=== PATIENT | female | born 1955 | race Caucasian/White ===

== ENCOUNTER 2017-04-14 08:08 | Inpatient (IN) | payer BC ==
[2017-04-08 17:11] LABS: WBC (NOT ORDERED) (RFLEX) 0 (0-5)
[2017-04-08 17:21] LABS: BASOPHILS 0.7 %; BASOPHILS ABSOLUTE 0.05 10/3/uL (0.0-0.16); EOSINOPHILS 5.3 %; EOSINOPHILS ABSOLUTE 0.38 10/3/uL (0.0-0.53); HEMATOCRIT 37.4 % (36.0-48.0); HEMOGLOBIN 12.4 g/dL (12.0-16.0); IMMATURE GRANULOCYTES 0.4 %; IMMATURE GRANULOCYTES ABSOLUTE 0.03 10/3/uL (0.0-0.11); LYMPHOCYTES 36.5 %; LYMPHOCYTES ABSOLUTE 2.61 10/3/uL (0.67-4.30); MEAN CORPUS HGB CONC 33.2 g/dL (32.0-36.0); MEAN CORPUSCULAR VOLUME 90.6 fL (80-100); MONOCYTES ABSOLUTE 0.57 10/3/uL (0.21-1.20); NEUTROPHILS 49.1 %; NEUTROPHILS ABSOLUTE 3.52 10/3/uL (2.02-8.40); PLATELET COUNT 245 10/3/uL (150-400); RBC DISTRIBUTION WIDTH 12.7 % (12.0-16.0); RED CELL COUNT 4.13 10/6/uL (4.0-5.6); WHITE BLOOD CELLS 7.2 10/3/uL (4.5-10.5)
[2017-04-08 17:23] LABS: MANUAL DIFF NO %
[2017-04-08 17:27] LABS: PROTIME (NOT ORD) 13.4 SEC (12.0-14.5)
[2017-04-08 17:39] LABS: % IRON SAT 27 % (20-50); A/G RATIO 1.2 (0.7-1.9); ALBUMIN 4.1 G/DL (3.5-5.0); ALKALINE PHOSPHATASE 103 U/L (45-117); BUN (BLOOD UREA NITROGEN) 11 MG/DL (6-23); CALCIUM, SERUM 9.7 MG/DL (8.5-10.4); CHLORIDE, SERUM 101 MMOL/L (96-112); CO2 (CARBON DIOXIDE) 29 MMOL/L (24-34); CREATININE 0.85 MG/DL (0.55-1.02); GFR AFRICAN AMERICAN 86 ML/MIN (>=60); GFR NON AFRICAN AMERICAN 74 ML/MIN (>=60); GLOBULIN 3.5 G/DL (2.5-4.1); GLUCOSE, SERUM 92 MG/DL (60-99); IRON BINDING CAPACITY 288 MCG/DL (225-410); IRON, SERUM 77 MCG/DL (35-150); POTASSIUM, SERUM 3.7 MMOL/L (3.5-5.3); SGOT(AST) 21 U/L (5-40); SGPT(ALT) 24 U/L (5-65); SODIUM, SERUM 137 MMOL/L (135-148); TOTAL BILIRUBIN 0.4 MG/DL (0-1.2); TOTAL PROTEIN 7.6 G/DL (6.0-8.5)
[2017-04-08 18:56] LABS: ASCORBIC ACID (UR NOT ORDER) NEG (NEG); BILIRUBIN, URINE NEGATIVE (NEG); KETONE, URINE NEGATIVE (NEG); LEUKOCYTE ESTERASE(NOT OR NEG (NEG)
--- NOTE | ~2017-04-14 | HP ---
History And Physical [place] [id number] [facility] [place]. [address] NAME: HILLARY VELAZQUEZ : 55 STATUS : DIS IN PAT#: [id number] AGE: 61 ADM/REG DATE : 04/14/17 MR#: [id number] REPORT SERV DATE: 06/16/17 DICTATED BY: LÁZARO VASQUEZ DATE: 06/15/17 REPORT STATUS : Draft TRANSCRIBED BY: MODL DATE: 06/15/17 DATE OF ADMISSION: 04/14/2017 Dictating for medical record only CHIEF COMPLAINT: Occasional gastroesophageal reflux disease. HISTORY OF PRESENT ILLNESS: Hillary Velazquez is a pleasant 61-year-old female, who was referred to Dr. Vasquez by Dr. Saw Moreno for a diagnosis of mitral valve insufficiency. The patient was seen in the office for possible mitral valve repair or replacement. 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 She has not noticed any significant shortness of breath with exertion. She denies anginal discomfort or chest pain, orthopnea, lower extremity edema. She denied personal history of angina or health problems other than her heart valve. She does have palpitations. She denies history of stroke or TIA-like symptoms. She has no history of postural dizziness and does complain of occasional GERD- like symptoms that she feels may be related to her diet. She did have a coronary arteriogram that demonstrated no significant coronary artery disease and a left ejection fraction of 50%. She was noted to have some left atrial dilation. PAST MEDICAL HISTORY: Significant for hyperlipidemia, hypertension, and mitral valve regurgitation. FAMILY HISTORY: Significant for diabetes mellitus, hypertension, hyperlipidemia. Her father did have myocardial infarction and is now . Her mother does have a history of hypertension and she has a sister with hyperlipidemia. SOCIAL HISTORY: She was never a smoker and denies history of alcohol or illicit drug use. She does consume caffeine on occasion. ALLERGIES: SHE DOES REPORT AN ALLERGY TO PENICILLIN. MEDICATIONS: Her medication list includes, 1. Acetaminophen 500 mg every 6 hours as needed. 2. Aspirin 81 mg once daily. 3. Ibuprofen 100 mg as needed. 4. Loratadine 10 mg once daily. 5. Lorazepam 0.5 mg twice daily. 6. Losartan HCTZ 50 mg-12.5 mg one tablet daily. 7. Magnesium 400 mg daily. 8. Pravastatin 20 mg at bedtime. 9. Vitamin B12 two tablets once daily. 10.Zantac 150 mg as needed. REVIEW OF SYSTEMS: CONSTITUTIONAL: Negative for weight gain, weight loss, or fever. EYES: Her eyes are negative for visual changes. History And Physical [address] [place]. [address] NAME: HILLARY VELAZQUEZ : 55 STATUS : DIS IN PAT#: [id number] AGE: 61 ADM/REG DATE : 04/14/17 MR#: [id number] REPORT SERV DATE: 06/16/17 DICTATED BY: LÁZARO VASQUEZ DATE: 06/15/17 REPORT STATUS : Draft TRANSCRIBED BY: AMALIA DATE: 06/15/17 ENT: Negative for hearing loss. RESPIRATORY: Negative for hemoptysis or dyspnea. She does state that she has snoring. CARDIAC: Negative for chest pain, diaphoresis, orthopnea, syncope, or paroxysmal nocturnal dyspnea. She does complain of palpitation. VASCULAR: Negative for claudication. GI: Negative for nausea, bleeding, and positive for reflux. : Negative for hematuria and positive for nocturia. ENDOCRINE: Negative for goiter or tremors. NEURO: Negative for dizziness, memory loss, or seizures. PSYCHIATRIC: Negative for depression or hallucinations. DERMATOLOGICAL: Negative for rash or skin sores. MUSCULOSKELETAL: Negative for joint pain and positive for myalgias. HEMATOLOGY: Negative for thrombocytopenia and positive for acute anemia. PHYSICAL EXAMINATION: VITAL SIGNS: Pulse rate of 61, blood pressure of 141/73. She is 64 inches, weighs 186 pounds, and BMI is 31.9. CONSTITUTIONAL: Negative for acute distress. She is well nourished and is well developed. HEENT: Her eyes, she has clear sclerae and conjunctivae bilaterally and pupils are equal, round, and reactive to light. Her oral mucosa is moist with no evidence of cyanosis or pallor. NECK: Her thyroid demonstrate no masses. She has normal range of motion of her neck and no evidence of jugular vein distention. RESPIRATORY: Her respirations are nonlabored and her breath sounds are clear throughout. CARDIAC: She has regular rate and rhythm and has normal palpation of the PMI. She has S1 and S2 heart sounds. She does have a positive 3/4 systolic ejection murmur heard at the left sternal border with radiation to the axilla. VASCULAR: She has normal carotid pulses bilaterally and normal pedal pulses bilaterally. ABDOMEN: There is no evidence of tenderness. It is soft upon palpation with no evidence of hepatic or splenomegaly. She has active bowel sounds. SKIN: Warm and dry without present of venous stasis ulcers or rashes. MUSCULOSKELETAL: Her gait is normal and she is able to exercise. EXTREMITIES: Demonstrate no evidence of upper or lower extremity edema. There is no clubbing or cyanosis. NEUROLOGIC: She is awake, alert, and oriented, and presents with appropriate mood and affect. IMPRESSION: 1. Non-rheumatic mitral valve insufficiency. 2. Hypertension. 3. Hyperlipidemia. PLAN: Mrs. Velazquez is a pleasant 61-year-old white female, who has asymptomatic mitral valve insufficiency and left atrial dilation. It looks like she has possible flail of P1, which is possible papillary muscle tear or possibly a forme mitral valve with blowing leaflets. I agree with her need for mitral valve replacement. There is no urgency for this procedure, however. 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 [address] NAME: HILLARY VELAZQUEZ : 55 STATUS : DIS IN PAT#: [id number] AGE: 61 ADM/REG DATE : 04/14/17 MR#: [id number] REPORT SERV DATE: 06/16/17 DICTATED BY: LÁZARO VASQUEZ DATE: 06/15/17 REPORT STATUS : Draft TRANSCRIBED BY: AMALIA DATE: 06/15/17 to proceeding with surgery. It was discussed with her risk for the procedure with the patient and her family in the office today and they understand the risks which include bleeding, infection, pneumonia, blood transfusion, liver or kidney damage, arrhythmias, need for pacemaker, heart attack, stroke, mediastinitis, DVT with pulmonary emboli, and among others. The patient states that she wishes to proceed with surgery and has been scheduled for a mitral valve replacement and transesophageal echocardiogram scheduled for 04/14/2017 at [facility]. DICTATED BY: RHONA Davidson/AMALIA Lázaro Vasquez M.D. / [id number] CC: Vannessa Kearney M.D.
--- NOTE | ~2017-04-14 | OP ---
Record Of Operation [facility] [address] [facility] [place]. [address] NAME: HILLARY VELAZQUEZ : 55 STATUS : ADM IN PAT#: [id number] AGE: 61 ADM/REG DATE : 04/14/17 MR#: [id number] REPORT SERV DATE: 04/15/17 DICTATED BY: LÁZARO VASQUEZ DATE: 04/14/17 REPORT STATUS : Draft TRANSCRIBED BY: MODL DATE: 04/14/17 DATE OF PROCEDURE: 04/14/2017 PREOPERATIVE DIAGNOSES: 1. Mitral valve insufficiency. 2. Hypertension. 3. Hyperlipidemia. 4. Obesity. POSTOPERATIVE DIAGNOSES: 1. Mitral valve insufficiency. 2. Hypertension. 3. Hyperlipidemia. 4. Obesity. PROCEDURE PERFORMED: 1. Mitral valvuloplasty with using [facility] NeoChords x2 and closure of cleft. 2. Mitral valve annuloplasty using a 30 mm annuloplasty ring system (Physio II). 3. Transesophageal echocardiography. SURGEON: Lázaro Vasquez M.D. BUSINESS OFFICE DIRECTOR: Klaus Lindsay and Evelyn Melissa. ANESTHESIA: General with Dr. Garcia. LIVESTOCK HANDLER: Saw Moreno M.D. PRIMARY CARE: Valdez Bourgeois. 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 Saw Moreno. She is not having significant symptoms of chest discomfort. She has no history of arrhythmias, and she denied any significant dyspnea with exertion. Her ventricular function remained preserved on echocardiography, and she was noted to have dilatation of the left atrium. Because of worsening mitral valve insufficiency on echo with Dr. Moreno, it was recommend that patient undergo operative repair of the valve. She had a cardiac catheterization, did not demonstrate any significant coronary artery disease. I saw the patient in my office and discussed possible mitral valve repair with she and her . After discussing the operation, indication, risks, they wished to proceed. Predicted operative mortality less than 1% and morbidity mortality less than 10% were shared with the family. Use of approach either through a thoracotomy or sternotomy was discussed with the patient. She preferred thoracotomy, however, accepted sternotomy if needed. FINDINGS: 1. Cross-clamp 96 minutes. Total pump time 110 minutes. Jail was used as Record Of Operation [facility] [address] [place]. [address] NAME: HILLARY VELAZQUEZ : 55 STATUS : ADM IN [facility]#: [id number] AGE: 61 ADM/REG DATE : 04/14/17 MR#: [id number] REPORT SERV DATE: 04/15/17 DICTATED BY: LÁZARO VASQUEZ DATE: 04/14/17 REPORT STATUS : Draft TRANSCRIBED BY: AMALIA DATE: 04/14/17 crystalloid cardioplegia. 2. 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 There was no flail but the chords of P2 were very long and generous. In addition, we found a large cleft between P1 and P2. The repair included a [facility] Rm chords x2 that was secured to the papillary muscle and into the edge of the sleeve generous P2 leaflet. In addition, we closed the cleft between P1 and P2 with a horizontal mattress suture of Prolene. 3. We used a 30 mm Physio II annuloplasty ring system. Twenty Cor-Knots were used to secure this ring in place. 4. We did ligate and amputate the left atrial appendage using 60 mm purple staple load. 5. NIKOS at the time of operation demonstrated good ventricular function with no residual mitral insufficiency. 6. Once the patient was asleep, I evaluated her, and in trying to position her, I felt that a repair would be best approached through a sternotomy. This was called and discussed with the family at that time who agreed. PATHOLOGIC SPECIMENS: Include left atrial appendage. DESCRIPTION OF PROCEDURE: The patient was brought to the operating suite where general anesthesia was induced and the airway secured with an endotracheal tube. Lines secured by Anesthesia and Ponce catheter was placed. NIKOS probe was placed by Anesthesia and examination carried out as discussed above. There was significant eccentric mitral insufficiency seen. There was very mild tricuspid insufficiency. No significant aortic insufficiency. The patient's chest, abdomen, groin, and legs prepped with Hibiclens and ChloraPrep and draped with Ioban sterile sheets. Then, a midline sternal incision made and the sternum opened with a saw. Lines were passed on the field for cardiopulmonary bypass and cleared of air. Cannulation pursestring sutures were placed in usual fashion. Cannulation was then carried out. A dual stage venous cannula was placed in the right atrial appendage. When all was in readiness, the patient placed on cardiopulmonary bypass. Then, the interatrial groove of [place] was dissected. The aorta was crossclamped and the only dose of cold crystalloid cardioplegia was administered using Custodiol solution for a total of 2 L. Following the first dose of cardioplegia, small left atriotomy was made and the left ventricle decompressed. The heart was gently rotated towards the surgeon. The left atrial appendage was grasped. It was ligated and amputated at its base using thoracoscopic stapler and a 60 mm purple staple load. The left atriotomy was expanded, and the Hannah retractor apparatus was assembled and positioned on good visualization of the mitral valve. The mitral valve was inspected and iced saline injection through the orifice of the mitral valve demonstrated a very redundant P2 leaflet with prolapse. I felt this possibly repaired valve and this valve edge was marked. Then, CV-4 [facility]av sutures were brought up to the field. It was first secured to the anterolateral papillary muscle with felt pledgets. The [facility]av suture was then passed Record Of Operation [facility] [address] [facility] [place]. [address] NAME: HILLARY VELAZQUEZ : 55 STATUS : ADM IN [facility]#: [id number] AGE: 61 ADM/REG DATE : 04/14/17 MR#: [id number] REPORT SERV DATE: 04/15/17 DICTATED BY: LÁZARO VASQUEZ DATE: 04/14/17 REPORT STATUS : Draft TRANSCRIBED BY: MODL DATE: 04/14/17 through the redundant portion of the P2 cusp with both sutures. A small clip was lightly placed on the [facility] Rm Chord at the appropriate length and an iced saline injection through the orifice of the mitral valve at this point demonstrated good seal of this prolapsed cord. However, large cleft between P1 and P2 became evident. We then closed this cleft with a horizontal mattress suture of 5-0 Prolene x1. Iced saline injection through the orifice of the mitral valve at this point demonstrated no insufficiency. Then, the [facility] Gaurav suture was passed back through the leaflet and tied to the leaflet with multiple knots. The small clip was removed from the [facility] suture. Iced saline injection into the left ventricle through the mitral repair demonstrated no insufficiency after repair. The valve was then sized and a 30 mm Physio II annuloplasty ring system was selected. Interrupted horizontal mattress sutures of 2-0 Tycron were placed circumferentially about the mitral valve annulus. The sutures were then passed through the sewing cuff of the annuloplasty ring. This was lowered into position. Each of the sutures individually secured and divided using a Cor-Knot device. A total of 20 Cor-Knots were utilized. Iced saline injection through the orifice of the mitral valve after repair demonstrated no insufficiency. Warming was begun. An LV vent was placed through right superior pulmonary vein and directed into the left ventricle through the mitral valve. The left atriotomy was then closed in a two-layer fashion running pledgeted suture of 4-0 Prolene. The patient was placed in Trendelenburg, and ventricular and atrial pacing wires were placed. Following de-airing of the ascending aorta and left ventricle, the aortic cross- clamp was removed. The heart was allowed to rest on cardiopulmonary bypass for several minutes. Ventilation was begun. When heart demonstrated good contractility, pacing was begun in an AV sequential fashion and later converted to atrial pacing only at a rate of 80. Heart was allowed to fill and eject. When deairing was completed, the LV vent was removed and these pursestring sutures tied. The ascending aortic vent was removed and these pursestring sutures tied and reinforced. The patient was weaned from cardiopulmonary bypass with minimal inotropic support. The venous cannulas were removed and these pursestring sutures tied. NIKOS examination demonstrated good functioning ventricle with no residual mitral insufficiency. There was no significant tricuspid or aortic valve insufficiency. Protamine was then administered by Anesthesia, and following a period of hemodynamic stability, the aortic cannula was removed and these pursestring sutures tied and reinforced. The patient continued to do well and chest irrigated copiously with saline. Meticulous hemostasis was obtained. Hemasorb was placed along the cut edge of the sternum. Once hemostasis was assured, the pericardium was draped over the anterior surface of the heart and tacked into position. Then, the heart and pericardial space were again inspected and irrigated and there was no bleeding evident. Chest tubes were placed and sternum reapproximated with 8 sternal wires. The clavipectoral fascia and linea alba closed with #1 Stratafix. The subcutaneous tissue closed with Stratafix and skin closed in subcuticular fashion. Record Of Operation [place] [id number] [place]. [address] NAME: HILLARY VELAZQUEZ : 55 STATUS : ADM IN PAT#: [id number] AGE: 61 ADM/REG DATE : 04/14/17 MR#: [id number] REPORT SERV DATE: 04/15/17 DICTATED BY: LÁZARO VASQUEZ DATE: 04/14/17 REPORT STATUS : Draft TRANSCRIBED BY: AMALIA DATE: 04/14/17 The patient tolerated the procedure well in no complications. Sponge and needle counts were correct. DISPOSITION: The patient left intubated, sedated, and transported to the intensive care unit in stable condition. LIBBY/AMALIA Lázaro Vasquez M.D. / [id number] CC: Vannessa Kearney M.D. Dennis Thompson, M.D.
[~2017-04-14 08:08] MED LIST: ACET500CAP PO; ADVIL PO; ASAB PO; ATV.5 PO; CLARIT10 PO; CYANO1000T PO; HYZAAR 50/12.51 TAB PO; MAGOX4 PO; PRAVAC PO; ZANTAC150 MG PO
[2017-04-14 18:51] LABS: PLATELET COUNT 176 10/3/uL (150-400)
[2017-04-14 18:52] LABS: HEMATOCRIT 32.5 % (36.0-48.0)
[2017-04-14 18:59] LABS: INTERNATIONAL NORMAL RATI 1.7 UNITS (-); PARTIAL THROMBO TIME 33.7 SEC (22.5-37.2)
[2017-04-14 19:00] LABS: PROTIME (NOT ORD) 19.4 SEC (12.0-14.5)
[2017-04-14 19:11] LABS: BE (BASE EXCESS) -4.8 MEQ/L (0 +/- 2.5); CARBOXYHEMOGLOBIN 0.3 % (0-3); HCO3 (ACTUAL BICARBONATE) 19.1 MEQ/L (23-27); HEMOBLOGIN CONTENT 11.7 G/DL (12-16); INSTRUMENT SERIAL # 11843; METHEMOGLOBIN 0.7 % (0-3); MODE SIMV; O2 CONTENT 16.7 VOL% (18-24); OPERATOR ID 18642; PCO2 (CO2 TENSION) 32 MMHG (35-45); PO2 (O2 TENSION) 273 MMHG (79-93); PRESSURE SUPPORT 0 cm.H2O; SAMPLE Arterial; TIDAL VOLUME 700 ML
[2017-04-14 21:35] LABS: BUN (BLOOD UREA NITROGEN) 12 MG/DL (6-23); CHLORIDE, SERUM 112 MMOL/L (96-112); CREATININE 0.98 MG/DL (0.55-1.02); GFR AFRICAN AMERICAN 72 ML/MIN (>=60); GFR NON AFRICAN AMERICAN 62 ML/MIN (>=60); GLUCOSE, SERUM 99 MG/DL (60-99); SODIUM, SERUM 132 MMOL/L (135-148)
[2017-04-14 21:36] LABS: CALCIUM, SERUM 7.8 MG/DL (8.5-10.4); CO2 (CARBON DIOXIDE) 21 MMOL/L (24-34)
[2017-04-15 00:49] LABS: HEMATOCRIT 32.9 % (36.0-48.0); HEMOGLOBIN 11.1 g/dL (12.0-16.0)
[2017-04-15 01:00] LABS: POTASSIUM, SERUM 3.7 MMOL/L (3.5-5.3)
[2017-04-15 01:08] LABS: BE (BASE EXCESS) -6.9 MEQ/L (0 +/- 2.5); CARBOXYHEMOGLOBIN 0.1 % (0-3); HEMOBLOGIN CONTENT 11.7 G/DL (12-16); INSTRUMENT SERIAL # 11843; METHEMOGLOBIN 0.8 % (0-3); O2 CONTENT 15.9 VOL% (18-24); PCO2 (CO2 TENSION) 46 MMHG (35-45); PO2 (O2 TENSION) 110 MMHG (79-93); pH 7.26 (7.37-7.43)
[2017-04-15 01:09] LABS: DEVICE NC; OPERATOR ID 13744; SAMPLE Arterial
[2017-04-15 04:47] LABS: BASOPHILS 0.1 %; BASOPHILS ABSOLUTE 0.01 10/3/uL (0.0-0.16); EOSINOPHILS 0 %; HEMATOCRIT 32.2 % (36.0-48.0); HEMOGLOBIN 10.8 g/dL (12.0-16.0); IMMATURE GRANULOCYTES 0.6 %; LYMPHOCYTES 3.5 %; LYMPHOCYTES ABSOLUTE 0.58 10/3/uL (0.67-4.30); MEAN CORPUS HGB CONC 33.5 g/dL (32.0-36.0); MEAN CORPUSCULAR HEMOGLOB 30.7 pg (26.0-34.0); MEAN CORPUSCULAR VOLUME 91.5 fL (80-100); MEAN PLATELET VOLUME 10.7 fL (9.2-13.0); MONOCYTES 4.9 %; MONOCYTES ABSOLUTE 0.81 10/3/uL (0.21-1.20); NEUTROPHILS 90.9 %; NEUTROPHILS ABSOLUTE 15.14 10/3/uL (2.02-8.40); PLATELET COUNT 151 10/3/uL (150-400); RBC DISTRIBUTION WIDTH 12.9 % (12.0-16.0); RED CELL COUNT 3.52 10/6/uL (4.0-5.6)
[2017-04-15 04:48] LABS: MANUAL DIFF NO %; WHITE BLOOD CELLS 16.6 10/3/uL (4.5-10.5)
[2017-04-15 05:02] LABS: BUN (BLOOD UREA NITROGEN) 14 MG/DL (6-23); CALCIUM, SERUM 7.2 MG/DL (8.5-10.4); CHLORIDE, SERUM 115 MMOL/L (96-112); CO2 (CARBON DIOXIDE) 22 MMOL/L (24-34); CREATININE 0.87 MG/DL (0.55-1.02); GFR AFRICAN AMERICAN 83 ML/MIN (>=60); GFR NON AFRICAN AMERICAN 72 ML/MIN (>=60); GLUCOSE, SERUM 99 MG/DL (60-99); POTASSIUM, SERUM 4.3 MMOL/L (3.5-5.3)
[2017-04-15 05:06] LABS: SODIUM, SERUM 142 MMOL/L (135-148)
[2017-04-15 15:34] LABS: BASOPHILS 0 %; EOSINOPHILS 0 %; HEMOGLOBIN 9.3 g/dL (12.0-16.0); IMMATURE GRANULOCYTES 0.4 %; IMMATURE GRANULOCYTES ABSOLUTE 0.09 10/3/uL (0.0-0.11); LYMPHOCYTES 8.1 %; LYMPHOCYTES ABSOLUTE 1.68 10/3/uL (0.67-4.30); MEAN CORPUS HGB CONC 32.5 g/dL (32.0-36.0); MEAN CORPUSCULAR HEMOGLOB 29.9 pg (26.0-34.0); MEAN PLATELET VOLUME 10.4 fL (9.2-13.0); MONOCYTES 7.6 %; MONOCYTES ABSOLUTE 1.59 10/3/uL (0.21-1.20); NEUTROPHILS 83.9 %; NEUTROPHILS ABSOLUTE 17.45 10/3/uL (2.02-8.40); PLATELET COUNT 147 10/3/uL (150-400); RBC DISTRIBUTION WIDTH 13.6 % (12.0-16.0); RED CELL COUNT 3.11 10/6/uL (4.0-5.6); WHITE BLOOD CELLS 20.8 10/3/uL (4.5-10.5)
[2017-04-15 15:39] LABS: HEMATOCRIT 28.6 % (36.0-48.0); MANUAL DIFF NO %
[2017-04-15 15:46] LABS: CHLORIDE, SERUM 111 MMOL/L (96-112); CO2 (CARBON DIOXIDE) 22 MMOL/L (24-34); CREATININE 0.98 MG/DL (0.55-1.02); GFR AFRICAN AMERICAN 72 ML/MIN (>=60); GFR NON AFRICAN AMERICAN 62 ML/MIN (>=60); GLUCOSE, SERUM 105 MG/DL (60-99); POTASSIUM, SERUM 4.7 MMOL/L (3.5-5.3); SODIUM, SERUM 141 MMOL/L (135-148)
[2017-04-15 15:47] LABS: BUN (BLOOD UREA NITROGEN) 18 MG/DL (6-23); CALCIUM, SERUM 8.2 MG/DL (8.5-10.4)
[2017-04-16 03:53] LABS: BASOPHILS 0 %; EOSINOPHILS 0 %; HEMOGLOBIN 8.4 g/dL (12.0-16.0); IMMATURE GRANULOCYTES 0.5 %; IMMATURE GRANULOCYTES ABSOLUTE 0.09 10/3/uL (0.0-0.11); LYMPHOCYTES 10.2 %; LYMPHOCYTES ABSOLUTE 1.82 10/3/uL (0.67-4.30); MEAN CORPUS HGB CONC 33.3 g/dL (32.0-36.0); MEAN CORPUSCULAR HEMOGLOB 30.5 pg (26.0-34.0); MEAN CORPUSCULAR VOLUME 91.6 fL (80-100); MEAN PLATELET VOLUME 10.6 fL (9.2-13.0); MONOCYTES 7.8 %; NEUTROPHILS 81.5 %; NEUTROPHILS ABSOLUTE 14.62 10/3/uL (2.02-8.40); PLATELET COUNT 118 10/3/uL (150-400); RBC DISTRIBUTION WIDTH 13.6 % (12.0-16.0); RED CELL COUNT 2.75 10/6/uL (4.0-5.6); WHITE BLOOD CELLS 17.9 10/3/uL (4.5-10.5)
[2017-04-16 04:02] LABS: HEMATOCRIT 25.2 % (36.0-48.0); MANUAL DIFF NO %
[2017-04-16 04:14] LABS: CALCIUM, SERUM 8.8 MG/DL (8.5-10.4); CHLORIDE, SERUM 109 MMOL/L (96-112); CO2 (CARBON DIOXIDE) 23 MMOL/L (24-34); CREATININE 0.92 MG/DL (0.55-1.02); GFR AFRICAN AMERICAN 78 ML/MIN (>=60); GFR NON AFRICAN AMERICAN 67 ML/MIN (>=60); GLUCOSE, SERUM 125 MG/DL (60-99); POTASSIUM, SERUM 4.6 MMOL/L (3.5-5.3); SODIUM, SERUM 139 MMOL/L (135-148)
[2017-04-16 04:18] LABS: BUN (BLOOD UREA NITROGEN) 26 MG/DL (6-23)
[2017-04-17 04:34] LABS: BASOPHILS 0.1 %; BASOPHILS ABSOLUTE 0.01 10/3/uL (0.0-0.16); EOSINOPHILS 0.1 %; EOSINOPHILS ABSOLUTE 0.01 10/3/uL (0.0-0.53); HEMATOCRIT 23.8 % (36.0-48.0); IMMATURE GRANULOCYTES 0.3 %; IMMATURE GRANULOCYTES ABSOLUTE 0.05 10/3/uL (0.0-0.11); LYMPHOCYTES ABSOLUTE 1.91 10/3/uL (0.67-4.30); MEAN CORPUS HGB CONC 33.6 g/dL (32.0-36.0); MEAN CORPUSCULAR HEMOGLOB 30.3 pg (26.0-34.0); MEAN CORPUSCULAR VOLUME 90.2 fL (80-100); MEAN PLATELET VOLUME 10.6 fL (9.2-13.0); MONOCYTES 8.5 %; MONOCYTES ABSOLUTE 1.36 10/3/uL (0.21-1.20); NEUTROPHILS ABSOLUTE 12.59 10/3/uL (2.02-8.40); PLATELET COUNT 104 10/3/uL (150-400); RBC DISTRIBUTION WIDTH 13.4 % (12.0-16.0); RED CELL COUNT 2.64 10/6/uL (4.0-5.6); WHITE BLOOD CELLS 15.9 10/3/uL (4.5-10.5)
[2017-04-17 04:43] LABS: MANUAL DIFF NO %
[2017-04-17 04:44] LABS: BUN (BLOOD UREA NITROGEN) 24 MG/DL (6-23); CALCIUM, SERUM 8.1 MG/DL (8.5-10.4); CHLORIDE, SERUM 103 MMOL/L (96-112); CO2 (CARBON DIOXIDE) 26 MMOL/L (24-34); CREATININE 0.91 MG/DL (0.55-1.02); GFR AFRICAN AMERICAN 79 ML/MIN (>=60); GFR NON AFRICAN AMERICAN 68 ML/MIN (>=60); GLUCOSE, SERUM 146 MG/DL (60-99); POTASSIUM, SERUM 4.3 MMOL/L (3.5-5.3); SODIUM, SERUM 134 MMOL/L (135-148)
[2017-04-17 20:21] LABS: INTERNATIONAL NORMAL RATI 1.2 UNITS (-)
[2017-04-17 20:25] LABS: PROTIME (NOT ORD) 15.2 SEC (12.0-14.5)
[2017-04-18 04:37] LABS: BASOPHILS 0.3 %; BASOPHILS ABSOLUTE 0.03 10/3/uL (0.0-0.16); EOSINOPHILS 1.4 %; EOSINOPHILS ABSOLUTE 0.16 10/3/uL (0.0-0.53); HEMATOCRIT 23.4 % (36.0-48.0); HEMOGLOBIN 7.9 g/dL (12.0-16.0); IMMATURE GRANULOCYTES 0.3 %; IMMATURE GRANULOCYTES ABSOLUTE 0.04 10/3/uL (0.0-0.11); LYMPHOCYTES 20.9 %; LYMPHOCYTES ABSOLUTE 2.44 10/3/uL (0.67-4.30); MEAN CORPUS HGB CONC 33.8 g/dL (32.0-36.0); MEAN CORPUSCULAR HEMOGLOB 30.6 pg (26.0-34.0); MEAN CORPUSCULAR VOLUME 90.7 fL (80-100); MEAN PLATELET VOLUME 10.2 fL (9.2-13.0); MONOCYTES 10.1 %; MONOCYTES ABSOLUTE 1.18 10/3/uL (0.21-1.20); NEUTROPHILS ABSOLUTE 7.81 10/3/uL (2.02-8.40); PLATELET COUNT 104 10/3/uL (150-400); RBC DISTRIBUTION WIDTH 13.2 % (12.0-16.0); RED CELL COUNT 2.58 10/6/uL (4.0-5.6); WHITE BLOOD CELLS 11.7 10/3/uL (4.5-10.5)
[2017-04-18 04:38] LABS: MANUAL DIFF NO %
[2017-04-18 04:41] LABS: INTERNATIONAL NORMAL RATI 1.3 UNITS (-); PROTIME (NOT ORD) 16.1 SEC (12.0-14.5)
[2017-04-18 04:45] LABS: CALCIUM, SERUM 8.1 MG/DL (8.5-10.4); CHLORIDE, SERUM 107 MMOL/L (96-112); CO2 (CARBON DIOXIDE) 27 MMOL/L (24-34); CREATININE 0.73 MG/DL (0.55-1.02); GFR AFRICAN AMERICAN 103 ML/MIN (>=60); GFR NON AFRICAN AMERICAN 89 ML/MIN (>=60); POTASSIUM, SERUM 4.1 MMOL/L (3.5-5.3); SODIUM, SERUM 140 MMOL/L (135-148)
[2017-04-18 04:46] LABS: BUN (BLOOD UREA NITROGEN) 13 MG/DL (6-23); GLUCOSE, SERUM 99 MG/DL (60-99)
[2017-04-19 06:04] LABS: BASOPHILS 0.3 %; BASOPHILS ABSOLUTE 0.03 10/3/uL (0.0-0.16); EOSINOPHILS 4.1 %; HEMATOCRIT 23.8 % (36.0-48.0); IMMATURE GRANULOCYTES 0.3 %; IMMATURE GRANULOCYTES ABSOLUTE 0.03 10/3/uL (0.0-0.11); LYMPHOCYTES 20.2 %; LYMPHOCYTES ABSOLUTE 1.95 10/3/uL (0.67-4.30); MEAN CORPUS HGB CONC 33.6 g/dL (32.0-36.0); MEAN CORPUSCULAR HEMOGLOB 30.1 pg (26.0-34.0); MEAN CORPUSCULAR VOLUME 89.5 fL (80-100); MEAN PLATELET VOLUME 9.8 fL (9.2-13.0); MONOCYTES 11.8 %; MONOCYTES ABSOLUTE 1.14 10/3/uL (0.21-1.20); NEUTROPHILS 63.3 %; NEUTROPHILS ABSOLUTE 6.09 10/3/uL (2.02-8.40); RED CELL COUNT 2.66 10/6/uL (4.0-5.6); WHITE BLOOD CELLS 9.6 10/3/uL (4.5-10.5)
[2017-04-19 06:08] LABS: MANUAL DIFF NO %; PLATELET COUNT 153 10/3/uL (150-400)
[2017-04-19 06:18] LABS: CHLORIDE, SERUM 104 MMOL/L (96-112); CO2 (CARBON DIOXIDE) 30 MMOL/L (24-34); CREATININE 0.72 MG/DL (0.55-1.02); GFR AFRICAN AMERICAN 105 ML/MIN (>=60); GFR NON AFRICAN AMERICAN 90 ML/MIN (>=60); GLUCOSE, SERUM 108 MG/DL (60-99); INTERNATIONAL NORMAL RATI 2.4 UNITS (-); POTASSIUM, SERUM 4.1 MMOL/L (3.5-5.3); PROTIME (NOT ORD) 26.1 SEC (12.0-14.5); SODIUM, SERUM 137 MMOL/L (135-148)
[2017-04-19 06:22] LABS: BUN (BLOOD UREA NITROGEN) 9 MG/DL (6-23)
[2017-04-19] MEDS ORDERED: CORDARONE PO (16:11)
[2017-04-19] MEDS ORDERED: C25 PO (16:11)
[2017-04-19] MEDS ORDERED: KLOR-CON M2020 MEQ PO (16:12)
[2017-04-19] MEDS ORDERED: L20 PO (16:12)
[2017-04-19] MEDS ORDERED: NORCO1 TA1 PO (16:13)
== END 2017-04-19 17:29 | disposition home or self-care (01) | DRG 220 ==
LOC: SDC/OF 08:08 → CVICU 17:28 → 5NO 04-16 11:23
PROVIDERS: Anesthesiology; Thoracic Surgery (Cardiothoracic Vascular Surgery)
PROC: 02L70ZK Occlusion of Left Atrial Appendage, Open Approach (ICD-10-PCS; 2017-04-14)
PROC: 5A1221Z Performance of Cardiac Output, Continuous (ICD-10-PCS; 2017-04-14)
PROC: 02UG0JZ Supplement Mitral Valve with Synthetic Substitute, Open Approach (ICD-10-PCS; principal; 2017-04-14 13:00)
PROC: B246ZZ4 Ultrasonography of Right and Left Heart, Transesophageal (ICD-10-PCS; 2017-04-14 13:00)
DX: I34.0 Nonrheumatic mitral (valve) insufficiency (principal); I97.89 Other postprocedural complications and disorders of the circulatory system, not elsewhere classified; I10 Essential (primary) hypertension; E78.5 Hyperlipidemia, unspecified; E66.9 Obesity, unspecified; I48.91 Unspecified atrial fibrillation; D64.9 Anemia, unspecified; Z68.31 Body mass index [BMI] 31.0-31.9, adult
CPT/HCPCS: 31720; 36415; 71010; 71020; 80048; 80053; 81001; 82330; 82803; 82805; 82947; 82962; 83036; 83540; 83550; 83735; 84132; 84295; 85014; 85018; 85025; 85049; 85347; 85610; 85730; 86850; 86900; 86901; 86920; 87641; 88304; 93005; 93312; 93320; 93325; 94002; 94640; 94660; 94770; A9270-GY; C1713; C1769; C1894; J0282; J0690; J1644; J1940; J2150; J2250; J2370; J2405; J2440; J2550; J2720; J2795; J2930; J3010; J3475; P9045